=== PATIENT | male | born 1950 | race American Indian/Alaskan Native ===

== ENCOUNTER 2019-05-05 06:02 | Day surgery (SDC) | payer MEDICARE ==
[~2019-05-05 06:02] MED LIST: LACTATED RINGERS 1,000 ML IV SCH
[2019-05-05] MEDS ORDERED: BACTERIOSTATIC SODIUM CHLORIDE 0.9% 30 ML VIAL INFILTRATI ONE (06:27)
[2019-05-05] MEDS ORDERED: GENTAMICIN/NS 80 MG/100 ML 100 ML IV ONE (06:49)
[2019-05-05] MEDS ORDERED: ceFAZolin/Water 2 GM/20 ML 2 GM/20 ML SYRINGE IV NR (07:00)
--- NOTE | 2019-05-05 07:22 | Anesthesia Consultation ---
Anesthesia Consult and Med Hx Date of service: 05/05/19 - Airway Anesthetic Teeth Evaluation: Poor, Partials ROM Head & Neck: Inadequate Mental/Hyoid Distance: Adequate Mallampati Class: Class III Intubation Access Assessment: Possibly Difficult - Pulmonary Exam CTA: Yes - Cardiac Exam Cardiac Exam: RRR - Pre-Operative Health Status ASA Pre-Surgery Classification: ASA2 Proposed Anesthetic Plan: General - Pulmonary Hx Smoking: Yes (04/29-04/27 PPD X 50 YRS) Hx Respiratory Symptoms: No Hx Sleep Apnea: No (ALESSANDRO PRE SCREEN HIGH RISK) - Cardiovascular System Hx Hypertension: Yes (took lisinopril this morning) Hx Heart Attack/AMI: No Hx Percutaneous Transluminal Coronary Angioplasty (PTCA): No - Central Nervous System CVA: No - Gastrointestinal Hx Gastroesophageal Reflux Disease: No - Endocrine Hx Renal Disease: No Hx Liver Disease: No Hx Insulin Dependent Diabetes: No Hx Non-Insulin Dependent Diabetes: No Hx Thyroid Disease: No - Other Systems Hx Alcohol Use: Yes (BEER EVERY OTHER DAY) Hx Obesity: No - Additional Comments Anesthesia Medical History Comments: No hx anesthetic complications.
--- NOTE | 2019-05-05 07:22 | Anesthesia Day of Surgery ---
Anesthesia Day of Surgery - Day of Surgery Patient Examined: Yes Patient H&P Reviewed: Yes Patient is NPO: Yes
[2019-05-05] MEDS ORDERED: HYDROmorphone 1 MG/1 ML INJ ONE (07:28)
[2019-05-05] MEDS ORDERED: PROPOFOL 200 MG/20 ML VIAL IV ONE (07:28)
[2019-05-05] MEDS ORDERED: fentaNYL 100 MCG/2 ML INJ IV PRN (08:00)
[2019-05-05] MEDS ORDERED: WATER FOR IRRIG STERILE 2000 ML IR ONE (08:03)
[2019-05-05] MEDS ORDERED: ONDANSETRON 4 MG/2 ML INJ ONE (08:14)
[2019-05-05] MEDS ORDERED: LIDOCAINE MPF (2%) 20 MG/1 ML VIAL 5 ML ONE (08:14)
--- NOTE | 2019-05-05 08:16 | Short Stay Summary ---
Short Stay Documentation Date of service: 05/05/19 Narrative H&P: 68 yr old male with psa 4.7 Dr. Méndez unable to do pus - History Past Medical History: hypertension Past Surgical History: No surgical history Social history: - Allergies and Medications Current Medications: Allergies No Known Allergies Allergy (Verified 05/01/19 15:08) Home Medications Medication Instructions Recorded Confirmed Last Taken Type Aspirin EC [Halfprin EC] 81 mg PO QDAY 05/01/19 05/01/19 04/28/19 History Ibuprofen [Motrin] 400 mg PO Q8H PRN 05/01/19 05/01/19 04/28/19 History hydroCHLOROthiazide [Hctz] 12.5 mg PO QDAY 05/01/19 05/05/19 05/03/19 History lisinopriL [Zestril TAB] 20 mg PO DAILY 05/01/19 05/05/19 05/05/19 04:30 History Active Medications Fentanyl (Sublimaze) 50 mcg IV Q5MIN PRN PRN Reason: Pain , Severe (7-10) Stop: 05/05/19 14:00 Lactated Ringer's (Lactated Ringers) 1,000 mls @ 100 mls/hr IV DIRECT ELADIA Last Admin: 05/05/19 06:55 Dose: 100 mls/hr Documented by: - Physical exam General appearance: no acute distress, well-nourished Integumentary: no rash HEENT: Atraumatic, PERRLA, EOMI Lungs: Clear to auscultation Breasts: deferred Heart: Regular rate, No murmurs Gastrointestinal: normal Male Genitourinary: normal Female Genitourinary: normal Rectal Exam: normal rectal tone Extremities: no ischemia, No edema Neurological: Normal gait - Brief post op/procedure progress note Date of procedure: 05/05/19 Pre-op diagnosis: psa 4.7, BPH Post-op diagnosis: same Procedure: cysto, rpg, pus 20cc bx 12 cores Anesthesia: RUDOLPH Surgeon: JAROD RODRIGES Estimated blood loss: minimal Pathology: list (prostate cores) Specimen disposition: to lab Condition: stable - Hospital course Hospital course: bactrim & norco on chart has post op info - Disposition Condition at discharge: Stable Disposition: DC- TO HOME OR SELFCARE Short Stay Discharge Plan Follow up with: ROBBIN JURADO JR, MD [Primary Care Provider] - 7 Days
--- NOTE | 2019-05-05 08:31 | Operative Report ---
PREOPERATIVE DIAGNOSIS: Elevated PSA 4.7, benign prostatic hypertrophy. POSTOPERATIVE DIAGNOSES: Elevated PSA 4.7, benign prostatic hypertrophy, mild bulbar urethral stricture, left small lower pole kidney stone, nonobstructing. SURGEON: Ren Mendez MD ANESTHESIA: General. ESTIMATED BLOOD LOSS: Minimal. FLUIDS: Crystalloid. COMPLICATIONS: No complications. INDICATIONS: This patient is a 68-year-old gentleman seen by Dr. Méndez in our [place] office. The patient had an elevated PSA 4.7. Attempts at prostate ultrasound under local were unsuccessful due to discomfort. He presents now for prostate biopsy under general anesthesia. Due to the discomfort from the previous procedure and his age, I elected to do a cystoscopy as well. Risks, benefits, and complications were explained to the patient and his . DESCRIPTION OF PROCEDURE: The patient was taken to the operative suite, placed in a supine position. After adequate general anesthesia, placed in a dorsal lithotomy position, prepped and draped in a sterile fashion. Pancystourethroscopy was performed with a 22-Turkish Storz cystoscope. The patient had a mild bulbar stricture, could advance the scope without any additional manipulation. His prostate displayed some mild trilobar obstruction. Bladder, no tumors or stones were noted. Both ureteral orifices in normal position. Bilateral retrograde pyelograms were obtained with an 8-Turkish Katy catheter and 8 mL of contrast. No filling defects or obstruction on the right. It was suggestive of a small stone in the lower pole calyx on the left. Next, using a prostate ultrasound, transducer was introduced. Prostate measurements revealed a 21 gram gland. No suspicious lesions could be appreciated. A 12-core biopsy was obtained, 4 cores at base, at the mid, and the apex of the prostate. He tolerated the procedure well. His bladder was emptied. He was extubated and taken to recovery room in stable condition. He will go home on Bactrim and [place]. JOB# [id number] [facility]
--- NOTE | 2019-05-05 08:42 | Ultrasound Report ---
ULTRASOUND TRANSRECTAL HISTORY: Elevated PSA, prostate biopsy FINDINGS: Transrectal ultrasound guidance was provided by radiology during prostate biopsy by urology . Prostate volume measures 21.3 cc. Please correlate with the procedural report as needed. IMPRESSION: Successful prostate biopsy under ultrasound guidance. Signer Name: Wong Zayas Jr, MD Signed: 05/05/2019 8:38 AM Workstation Name: [id number]
--- NOTE | 2019-05-05 09:03 | Fluoroscopy Report ---
FLUOROSCOPY RETROGRADE UROGRAPHY HISTORY: Elevated PSA, BPH, left renal stone FINDINGS: 6 seconds of fluoroscopy time was provided by radiology during retrograde urography by the urologist. The energy conservation director image demonstrates an approximate 1.3 cm stone overlying the inferior pole of th e left kidney. 4 fluoroscopic images are presented demonstrating normal appearance of the renal colle cting systems otherwise. No associated hydronephrosis or ureteral filling defect is identified. IMPRESSION: Left renal stone as described. No ureteral stones or abnormal dilatation. Signer Name: Wong Zayas Jr, MD Signed: 05/05/2019 8:58 AM Workstation Name: [id number]
[2019-05-05 10:20] VITALS: BP 134/71
--- NOTE | 2019-05-05 11:39 | Post Anesthesia Evaluation ---
- Post Anesthesia Evaluation Patient Participated: Yes Airway Patent: Yes Stable Respiratory Function: Yes Nausea/Vomiting: No Temp > 96.8F: Yes Pain Manageable: Yes Adequeate Hydration: Yes Anesthesia Complications: No
== END 2019-05-05 06:03 | disposition home or self-care (01) ==
LOC: OR 06:02
PROVIDERS: ATTEND Urology
DX: R97.20 Elevated prostate specific antigen [PSA] (principal); N40.0 Benign prostatic hyperplasia without lower urinary tract symptoms; C61 Malignant neoplasm of prostate; N35.912 Unspecified bulbous urethral stricture, male; N20.0 Calculus of kidney; I10 Essential (primary) hypertension; F17.210 Nicotine dependence, cigarettes, uncomplicated; Z72.89 Other problems related to lifestyle; Z79.899 Other long term (current) drug therapy; Z98.890 Other specified postprocedural states; Z79.82 Long term (current) use of aspirin
CPT/HCPCS: 52005; 55700; 74420; 76872; 76942; 88305; 88344; A4217; C1758; J0690; J1170; J1580; J2405; J2704; J7120; Q9967; 88342